=== PATIENT | female | born 1970 ===

== ENCOUNTER 2021-12-12 12:39 | Outpatient (CLI) | payer SELFPAY | END 2021-12-12 12:40 | disposition home or self-care (01) | LOC: LABHHL 12:39 | PROVIDERS: ATTEND Otolaryngology Sleep Medicine | DX: J32.0 Chronic maxillary sinusitis (principal); J34.2 Deviated nasal septum; J34.3 Hypertrophy of nasal turbinates | CPT/HCPCS: 88304; 88305; 88311 ==